=== PATIENT | female | born 1995 | race Caucasian/White ===

== ENCOUNTER 2018-12-11 21:02 | Inpatient (IN) | payer BC, OTHER, MEDICAID ==
[~2018-12-11] VITALS: Ht 165.1 cm; Wt 72.6 kg
[2018-12-11 21:09] VITALS: BP 129/65
[2018-12-11 21:22] LABS: URINE BILIRUBIN NEGATIVE (Negative); URINE BLOOD 1+ (Negative); URINE CLARITY TURBID; URINE COLOR YELLOW; URINE GLUCOSE-RANDOM NEGATIVE (Negative); URINE KETONES TRACE (Negative); URINE PROTEIN TRACE (Negative); URINE SPECIFIC GRAVITY <= 1.005 (1.005-1.030); URINE UROBILINOGEN 0.2 E.U./dl (0.2-1.0)
[2018-12-11 21:24] LABS: URINE LEUKOCYTES-REFLEX 2+ (Negative); URINE NITRITE-REFLEX POSITIVE (Negative)
[2018-12-11 21:29] LABS: HEMATOCRIT 40.6 % (37.0-47.0); HEMOGLOBIN 13.9 gm/dL (12.0-15.0); MCH 31.8 pg (26.0-34.0); MCHC 34.2 g/dL (28.0-37.0); MPV 7.1 fl. (7.2-11.1); NUCLEATED RBCS 0 /100WBC; PLATELET COUNT* 339 thou/uL (150-400); RBC 4.36 mil/uL (4.20-5.00); RDW-CV 12.8 % (10.5-14.5); WBC 16.4 thou/uL (4.0-11.0)
[2018-12-11 21:31] LABS: SQUAMOUS >10 Many /LPF (0-3); URINE RBC 0-2 Rare /HPF (0-2); URINE WBC-REFLEX >25 Many /HPF (0-5)
[2018-12-11 21:32] LABS: CASTS None Seen /LPF (None Seen); CRYSTALS None Seen /LPF (None Seen); MUCUS None Seen strn/LPF (None Seen)
[2018-12-11 21:41] LABS: ALBUMIN 3.2 g/dL (3.4-5.0); CALCIUM 8.3 mg/dL (8.5-10.1); POTASSIUM 3.2 mmol/L (3.5-5.1); TOTAL BILIRUBIN 0.4 mg/dL (<0.1-1.0); TOTAL PROTEIN 7.4 g/dL (6.4-8.2)
[2018-12-11 21:51] LABS: ABSOLUTE LYMPHOCYTES 0.8 thou/uL (0.8-5.3); ABSOLUTE MONOCYTES 0.7 thou/uL (0.0-1.2); ABSOLUTE NEUTROPHILS 14.9 thou/uL (1.6-8.1)
[2018-12-11 21:53] LABS: PLATELET ESTIMATE ADEQUATE
[2018-12-11 22:06] LABS: AMP/METHAMP POSITIVE (Negative); BARBITURATES Negative (Negative); BENZODIAZEPINES POSITIVE (Negative); COCAINE Negative (Negative); METHADONE Negative (Negative); OPIATES Negative (Negative); PCP Negative (Negative); THC Negative (Negative)
[2018-12-11 23:53] VITALS: BP 109/72
[2018-12-12] VITALS (8 sets, daily range): BP systolic 79–159; BP diastolic 36–66
--- NOTE | 2018-12-12 04:29 | NUR ---
ASSESSMENT: PT REMAIN ALERT AND ORIENT TIMES FOUR. UP AD TITO. STATE THAT MORPHINE THAT WAS GIVEN IN ED HAS HELPED ABDOMINAL PAIN. HAS NOT REQUESTED PRN PAIN MEDS THUS FAR. S/O IN THE ROOM. SR-ST PER MONITOR. DID EAT A BOX LUNCH UPON ARRIVAL TO THE UNIT. UDS + FOR METH AND BENZO'S. IVF INFUSING WILL VIA RAC. BLOOD PRESSURE RUNNING LOW 79-82/36-70'S. TWO LITERS OF NS WAS INFUSED, AND THEN NS RUNINING AT 100ML/HR. PT IS ASYMPTOMATIC WITH LOW BP. WILL CONTINUE TO MONITOR.
[2018-12-12 10:36] LABS: CALCIUM 7.5 mg/dL (8.5-10.1); CREATININE 0.9 mg/dL (0.6-1.3); MAGNESIUM 1.6 mg/dL (1.8-2.4); POTASSIUM 3.7 mmol/L (3.5-5.1)
--- NOTE | 2018-12-12 10:46 | EKG ---
[place] [address] ELECTROCARDIOGRAM REPORT Name: GRISELDA HARRIS Room: [address] ADM IN [facility].#: [id number] Admission: 12/11/18 Attend Phys: Leon Spaulding MD Discharge: Date of : 89 Report #: [id number] THIS REPORT FOR: //name// [facility] ED Test Date: 2018-12-11 Test Time: 23:13:00 Pat Name: GRISELDA HARRIS Department: Room: [facility] Gender: F Digital Editor: DALJIT : 1995 Requested By: Della Sidhu Order Number: [id number] MD: Mike Solorzano Measurements Intervals [place] Rate: 115 P: 13 [place]: 111 QRS: 77 QRSD: 78 T: 48 QT: 305 QTc: 422 Interpretive Statements Sinus tachycardia No previous ECG available for comparison Electronically Signed On 12-12-2018 10:46:40 CDT by Mike Solorzano [email or web address] <ELECTRONICALLY SIGNED> By: Mike Solorzano MD, [facility] 12/12/18 1046 2313 12 Mike Solorzano MD, FACC /EPI
--- NOTE | 2018-12-12 13:37 | NUR ---
Nutrition: Pt was sound asleep at time of visit. Physician indicated mild PCM - defer. Pt eating regular diet. Supplement ordered for all meals - RD will order Ensure high protein. Labs, RX, Hx noted. Wt: 160#. Mild nutrition risk.
--- NOTE | 2018-12-12 18:55 | NUR ---
VSS-101.6 THIS AM, NO FURTHER ELEVATION OF TEMP TODAY. FLAT AFFECT, HAS TO BE COAXXED INTO ANSWERING SIMPLE YES AND NO QUSTIONS. POOR APPETITE. OOB WITH SBA TO USE RESTROOM, VOIDING WITHOUT DIFFICULTY.
[2018-12-13 00:05] LABS: INFLUENZA A ANTIGEN None Detected (None Detect)
[2018-12-13 00:51] VITALS: BP 89/47
--- NOTE | 2018-12-13 03:33 | NUR ---
ASSESSMENT: PT REMAIN ALERT AND ORIENT, SLEEPY AND NOT VERY COOPERATIVE. PT C/O HAVING A HEADACHE. TYLENOL WAS GIVEN WITH PARTIAL RESULTS. NASAL SAB WAS POSITIVE FOR INFLUENZA. ISOLATION FOR AIRBORNE CONTACT INITIATED. TAMAFLU WILL BEGIN IN THE AM TIMES FIVE DAYS. S/O AT THE BEDSIDE, INFORMED ABOUT HAND WASHING, MASK, AND KEEPING THE DOOR CLOSED. PT IS VERY SLEEPY, EASY TO AROUSE. SLOW PROGRESS TOWARD DISCHARGE GOALS. WILL CONTINUE TO MONITOR.
[2018-12-13 04:00] VITALS: BP 126/58; BP 153/86
[2018-12-13 04:23] LABS: HEMATOCRIT 36.8 % (37.0-47.0); HEMOGLOBIN 12.4 gm/dL (12.0-15.0); MCH 31.9 pg (26.0-34.0); MCHC 33.8 g/dL (28.0-37.0); MCV 94.5 fL (80.0-100.0); RBC 3.89 mil/uL (4.20-5.00); RDW-CV 12.6 % (10.5-14.5); WBC 9.4 thou/uL (4.0-11.0)
[2018-12-13 04:44] LABS: CALCIUM 8.1 mg/dL (8.5-10.1); CREATININE 0.8 mg/dL (0.6-1.3); MAGNESIUM 2.1 mg/dL (1.8-2.4); POTASSIUM 4.2 mmol/L (3.5-5.1)
[2018-12-13 09:00] VITALS: BP 109/63
[2018-12-13 15:39] VITALS: BP 110/58
--- NOTE | 2018-12-13 17:17 | NUR ---
PATIENT ASKED TO LEAVE TO THE FLOOR TO GO OUTSIDE, EXPLAINED THAT LEAVING THE FLOOR IS NOT ALLOWED AND THAT WALKING AROUND THE FLOOR IS OKAY. PATIENT SAID THAT "I WILL JUST WALK AROUND SPREADING THE FLU TO EVERY ONE THEN." TOLD PATIENT TO LEAVE MASK ON SHE WALKED. PATIENT AND BOYFRIEND WALKED AWAY AND GOT ON THE ELEVATOR AND LEFT THE FLOOR. SECURITY CALLED, [employer] CONSULTANT NOTIFIED AND PROVIDER WELL. PATIENT HAS STILL NOT RETURNED TO THE FLOOR. SOME CLOTHES WERE LEFT IN THE BATHROOM BUT MOST OF THE BELONGINGS WHERE IN BAGS THAT THE BOYFRIEND CARRIED OUT. PATIENT STILL HAS IV IN PLACE. TRIED TO CALL BOYFRIEND NO ANSWER, TRIED TO CALL PATIENT WITH NO ANSWER, WAS ABLE TO GET AHOLD OF AN AUNT. AUNT SAID "I WILL TRY TO GET A HOLD OF HER". [employer] POLICE NOTIFIED.
== END 2018-12-13 16:58 | disposition left against medical advice (07) | DRG 872 ==
LOC: M.ERS 21:02 → M.3W 23:13 → M.TBA-ER 23:13 → M.2W 23:28 → M.3W 12-12 00:13
PROVIDERS: Emergency Medicine; Internal Medicine; Physician Assistant; ADMIT Internal Medicine
DX: A41.50 Gram-negative sepsis, unspecified (principal); N12 Tubulo-interstitial nephritis, not specified as acute or chronic; E44.1 Mild protein-calorie malnutrition; F15.10 Other stimulant abuse, uncomplicated; J10.1 Influenza due to other identified influenza virus with other respiratory manifestations; E87.6 Hypokalemia; F13.10 Sedative, hypnotic or anxiolytic abuse, uncomplicated; F17.210 Nicotine dependence, cigarettes, uncomplicated; Z53.21 Procedure and treatment not carried out due to patient leaving prior to being seen by health care provider; Z68.26 Body mass index [BMI] 26.0-26.9, adult; Z79.899 Other long term (current) drug therapy